=== PATIENT | male | born 1970 | race Caucasian/White ===

== ENCOUNTER → 2016-09-21 | Outpatient (CLI) | payer OTHER ==
--- NOTE | 2016-09-21 10:15 | US ---
Renal Sonography Clinical History: 46-year-old male with left-sided flank pain and some hematuria. Rule out kidney sto ne. Technique: A curvilinear 5 MHz transducer was used to sonographically evaluate the kidneys and region of the urinary bladder. Color Doppler was also used. Comparison Study: None. Findings: The kidneys are normal in size, shape, and position, with no focal renal mass, hydronephros is, perinephric fluid, or renal cortical atrophy. There is no nephrolithiasis observed. This exam ceron s not exclude pyelonephritis. The right kidney measures 12.0 x 6.0 x 5.2 cm with a renal cortical thi ckness of 1.5 cm, and the left kidney measures 13.1 x 5.6 x 6.2 cm, with a renal cortical thickness o f 2.9 cm. The urinary bladder is contracted as the patient recently voided, with a volume of only 13 mL and ureteral jets are not seen. Incidental note is made of diffuse increased echogenicity of the l iver relative to the adjacent right renal cortex, consistent with hepatic steatosis. Impression: Normal renal sonography. If there is further clinical concern regarding the patient's left flank pain, CT imaging could be con sidered. Results were conveyed to Dr. Mauri Rashid. A test result has been communicated to a licensed care provider and documented in [employer], 10:10:35 A M, 09/21/2016, [employer] Message ID [id number].
== END ==
LOC: BMCIMAGING 09:38
PROVIDERS: ATTEND Emergency Medicine
DX: R10.9 Unspecified abdominal pain (principal); R31.9 Hematuria, unspecified

== ENCOUNTER 2018-02-23 12:46 | Emergency (ER) | payer OTHER ==
--- NOTE | 2018-02-23 13:32 | EDPHY ---
H & P Time Seen by Provider: 02/23/18 13:32 HPI/ROS: CHIEF COMPLAINT: Left-sided chest pain HISTORY OF PRESENT ILLNESS: 2 weeks ago the patient had 2 episodes of pain is similar place on the left side of his chest that was sharp and only lasted 1 sec. He started having symptoms at 2:00 a.m. With left-sided chest pain described as a pressure or tightness with a fluttering sensation. Mild shortness of breath but no cough or hemoptysis. Does not radiate. No nausea or diaphoresis. Not exertional or positional. A little bit better with deep breath. Symptoms mild currently. REVIEW OF SYSTEMS: Eye: no change in vision ENT: no sore throat Cardiac: HPI no syncope Pulmonary: no cough or SOB Abdomen: no vomiting, diarrhea, abdominal pain Musculoskeletal: No leg swelling Skin: no rash Neuro: no headache Constitutional: no fever : no urinary symptoms A comprehensive 10 point review of systems is otherwise negative aside from elements mentioned in the history of present illness. PAST MEDICAL HISTORY: Includes hypertension and knee surgery 3 years ago. Family history negative for venous thromboembolism or premature coronary disease Social history: Denies tobacco or cocaine, traveled in December to [place] General Appearance: Alert and conversant, cooperative. Eyes: No scleral icterus. ENT, Mouth: Normal mucous membranes. Respiratory: Normal respiratory effort, breath sounds equal, lungs are clear to auscultation. Cardiovascular: Regular rate and rhythm. No murmur. Gastrointestinal: Abdomen is soft and non tender. Neurological: Alert, face symmetric, normal motor and sensory in extremities. Skin: Warm and dry, no rashes. Musculoskeletal: No peripheral edema. No calf tenderness. Psychiatric: Not agitated. Emergency Department course/MDM: Low risk heart score with negative troponin. Low pretest probability for pulmonary embolism. 1520: Shared decision making discussed, 3 hr troponin offered and the patient declined. Patient has capacity to make decisions regarding his care, understands increased risk of MACE with single troponin. Cardiology referral given, discussed with Dr. Rivero at 1525. Smoking Status: Never smoked Constitutional: Initial Vital Signs Temperature (C) 36.6 C 02/23/18 12:51 Heart Rate 59 L 02/23/18 12:51 Respiratory Rate 16 02/23/18 12:51 Blood Pressure 169/99 H 02/23/18 12:51 O2 Sat (%) 97 02/23/18 12:51 O2 Delivery Mode Room Air Allergies/Adverse Reactions: Penicillins Allergy (Verified 02/23/18 12:54) Home Medications: Medication Instructions Recorded NK [No Known Home Meds] 02/23/18 Medical Decision Making - Diagnostics EKG Interpretation: 12-lead EKG interpreted by me; official reading is in trace master. My interpretation is sinus rhythm rate 57 with no ischemic changes. Imaging Results: Imaging Impressions Chest X-Ray 02/23/18 13:41 Impression: Normal. Imaging: I viewed and interpreted images myself Differential Diagnosis: Differential diagnosis considered for chest pain including but not limited to myocardial ischemia, aortic dissection, pericarditis, pulmonary embolus, chest wall pain, pleural inflammation and pulmonary infectious causes. - Data Points Laboratory Results: Laboratory Results 02/23/18 13:38 02/23/18 13:38 02/23/18 02/23/18 02/23/18 13:48 13:38 13:38 WBC RBC Hgb Hct MCV MCH MCHC RDW Plt Count MPV Neut % (Auto) Lymph % (Auto) Charles % (Auto) Eos % (Auto) Baso % (Auto) Nucleat RBC Rel Count Absolute Neuts (auto) Absolute Lymphs (auto) Absolute Monos (auto) Absolute Eos (auto) Absolute Basos (auto) Absolute Nucleated RBC Immature Gran % Immature Gran # D-Dimer < 0.27 ug/mLFEU ug/mLFEU (0.00-0.50) Sodium 142 mEq/L mEq/L (135-145) Potassium 4.4 mEq/L mEq/L (3.3-5.0) Chloride 99 mEq/L mEq/L (97-110) Carbon Dioxide 24 mEq/l mEq/l (22-31) Anion Gap 19 mEq/L H mEq/L (8-16) BUN 14 mg/dL mg/dL (7-23) Creatinine 0.9 mg/dL mg/dL (0.7-1.3) Estimated GFR > 60 Glucose 90 mg/dL mg/dL (70-100) Calcium 9.5 mg/dL mg/dL (8.5-10.4) POC Troponin I 0.00 ng/mL ng/mL (0.00-0.08) 02/23/18 13:38 WBC 5.96 10^3/uL 10^3/uL (3.80-9.50) RBC 5.23 10^6/uL 10^6/uL (4.40-6.38) Hgb 17.3 g/dL g/dL (13.7-17.5) Hct 48.0 % % (40.0-51.0) MCV 91.8 fL fL (81.5-99.8) MCH 33.1 pg pg (27.9-34.1) MCHC 36.0 g/dL g/dL (32.4-36.7) RDW 12.2 % % (11.5-15.2) Plt Count 210 10^3/uL 10^3/uL (150-400) MPV 9.1 fL fL (8.7-11.7) Neut % (Auto) 50.8 % % (39.3-74.2) Lymph % (Auto) 37.9 % % (15.0-45.0) Charles % (Auto) 9.1 % % (4.5-13.0) Eos % (Auto) 1.2 % % (0.6-7.6) Baso % (Auto) 0.5 % % (0.3-1.7) Nucleat RBC Rel Count 0.0 % % (0.0-0.2) Absolute Neuts (auto) 3.03 10^3/uL 10^3/uL (1.70-6.50) Absolute Lymphs (auto) 2.26 10^3/uL 10^3/uL (1.00-3.00) Absolute Monos (auto) 0.54 10^3/uL 10^3/uL (0.30-0.80) Absolute Eos (auto) 0.07 10^3/uL 10^3/uL (0.03-0.40) Absolute Basos (auto) 0.03 10^3/uL 10^3/uL (0.02-0.10) Absolute Nucleated RBC 0.00 10^3/uL 10^3/uL (0-0.01) Immature Gran % 0.5 % % (0.0-1.1) Immature Gran # 0.03 10^3/uL 10^3/uL (0.00-0.10) D-Dimer Sodium Potassium Chloride Carbon Dioxide Anion Gap BUN Creatinine Estimated GFR Glucose Calcium POC Troponin I Medications Given: Discontinued Medications Aspirin (Aspirin) 324 mg PO EDNOW ONE Stop: 02/23/18 13:42 Last Admin: 02/23/18 13:45 Dose: 324 mg Point of Care Test Results: Chemistry 02/23/18 13:48 POC Troponin I 0.00 ng/mL ng/mL (0.00-0.08) Departure - Departure Disposition: Home, Routine, Self-Care Clinical Impression: Chest pain Qualifiers: Chest pain type: unspecified Qualified Code(s): R07.9 - Chest pain, unspecified Condition: Good Instructions: Chest Pain (ED) Referrals: Raheem Jama DO [Primary Care Provider] - As per Instructions Vanessa Rivero MD [Medical Doctor] - 1-2 days without fail (The cardiology office follow-up this week referral.)
--- NOTE | 2018-02-23 13:39 | CPEKG ---
Heart Rate: 57 RR Interval: 1053 P-R Interval: 152 QRSD Interval: 96 QT Interval: 432 QTC Interval: 421 P [place]: 41 QRS [place]: 17 T Wave [place]: 24 EKG Severity - NORMAL ECG - EKG Impression: SINUS RHYTHM Electronically Signed By: Sergey Roblero 23-Feb-2018 14:07:39
[2018-02-23] MEDS ORDERED: ASPIRIN 81 MG CHEWABLE TAB PO ONE (13:41)
[2018-02-23 13:51] LABS: PLATELET COUNT 210 10^3/uL (150-400)
[2018-02-23 15:55] VITALS: BP 138/93
== END 2018-02-23 15:53 | disposition home or self-care (01) ==
DX: R07.9 Chest pain, unspecified (principal); I10 Essential (primary) hypertension
CPT/HCPCS: 84484-PO